=== PATIENT | male | born 1995 | race Caucasian/White ===

== ENCOUNTER 2023-10-16 19:18 | Emergency (ER) | payer OTHER, SELFPAY ==
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
[2023-10-16 19:23] VITALS: BP 131/96; PULSE 103; RESP 18; TEMP 36.2; O2SAT 97; BMI 27.4
[2023-10-16 19:31] VITALS: BP 131/96; PULSE 103; RESP 18; TEMP 36.2; O2SAT 97
[2023-10-16] MEDS: Diphth,Pertus(ACell),Tet Adult 0.5 ML SYRINGE IM (19:32)
--- OUTSIDE RECORDS SUMMARY | 2023-10-16 19:32 | XMS_ITS | Continuity of Care Document ---
Author Organization [facility] ter Address [address] [place] [address]- Care Team Providers Care Live Study Manager Name Role Phone Temitope Raymundo MD Primary Care Physician Encounter [facility] Date(s): 01/31/23 - 01/31/[address] [address]- Discharge Disposition: A-D/C Home Attending Physician: Sonja Mahoney MD Admitting Physician: Sonja Mahoney MD Referring Physician: Not on Staff, Referring MD Allergies, Adverse Reactions, Alerts No Known Allergies Medications No Known Medications Results Radiology Reports * Exam Date Time Procedure Performing Provider Status 01/31/23 9:[address] Cervical Spine W/O Contrast Joan Vasquez; Hermelinda (Verified) Notes: (CT Cervical Spine W/O Contrast) Reason For Exam: Neck trauma, dangerous injury mechanism;Other: RESULT: CT Cervical Spine W/O Contrast CT Head/Brain W/O Contrast, CT Cervical Spine W/O Contrast INDICATION: Reason: Trauma; Clinical Question(s): Hematoma TECHNIQUE: Noncontrast head CT using axial technique was reconstructed in axial and coronal planes.Noncontrast spiral CT through the cervical spine was formatted in 3 planes. Automatic tube modulation was used for the cervical spine and iterative dose reconstruction was used for both the head and cervical spine to optimize scan parameters and image quality. CTDIvol Body: 18.54 mGy, DLP Body: 411 mGy*cm. CTDIvol Head: 46.46 mGy, DLP Head: 836 mGy*cm. COMPARISON: None. FINDINGS: Resident Care Provider View Findings, Lines and Tubes: None. BRAIN AND EXTRA-AXIAL SPACES: No parenchymal hemorrhage, midline shift, or mass effect. Sharma-white matter differentiation is wellpreserved. No acute infarct. Ventricles, sulci, and basilar cisterns are normal. No white matter lesions. No subarachnoid hemorrhage. No subdural or epidural collection. CALVARIUM, SKULL BASE, AND SOFT TISSUES: No fractures or suspicious bony lesions. The paranasal sinuses and mastoid air cells are clear. Visualized orbits and globes are intact. The extracranial soft tissues are unremarkable. CERVICAL SPINE: No fracture. No acute osseous abnormalities. 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 Normal alignment. No locked or perched facet. Intervertebral disc spaces and vertebral body heightsare preserved. OTHER BONES: No acute abnormality. CERVICAL SOFT TISSUES AND LUNG APICES: Normal soft tissues. Visualized lung apices are clear. IMPRESSION: No acute abnormality of the head or cervical spine. WSN: [id number] Ordering Physician: Sonja Mahoney MD Dictated By: All Bey MD Dictated Date/Time: 01/31/23 10:05 a Reviewed By: All Bey MD Signed By: All Bey MD Signed Date/Time: 01/31/23 10:05 am Transcribed By: LILLIE Transcribed Date/Time: 01/31/23 9:54 am * Exam Date Time Procedure Performing Provider Status 01/31/23 9:[address] Head/Brain W/O Contrast Joan Lin; Hermelinda (Verified) Notes: (CT Head/Brain W/O Contrast) Reason For Exam: Trauma RESULT: CT Head/Brain W/O Contrast CT Head/Brain W/O Contrast, CT Cervical Spine W/O Contrast INDICATION: Reason: Trauma; Clinical Question(s): Hematoma TECHNIQUE: Noncontrast head CT using axial technique was reconstructed in axial and coronal planes.Noncontrast spiral CT through the cervical spine was formatted in 3 planes. Automatic tube modulation was used for the cervical spine and iterative dose reconstruction was used for both the head and cervical spine to optimize scan parameters and image quality. CTDIvol Body: 18.54 mGy, DLP Body: 411 mGy*cm. CTDIvol Head: 46.46 mGy, DLP Head: 836 mGy*cm. COMPARISON: None. FINDINGS: Resident Care Provider View Findings, Lines and Tubes: None. BRAIN AND EXTRA-AXIAL SPACES: No parenchymal hemorrhage, midline shift, or mass effect. Sharma-white matter differentiation is wellpreserved. No acute infarct. Ventricles, sulci, and basilar cisterns are normal. No white matter lesions. No subarachnoid hemorrhage. No subdural or epidural collection. CALVARIUM, SKULL BASE, AND SOFT TISSUES: No fractures or suspicious bony lesions. The paranasal sinuses and mastoid air cells are clear. Visualized orbits and globes are intact. The extracranial soft tissues are unremarkable. CERVICAL SPINE: No fracture. No acute osseous abnormalities. 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 Normal alignment. No locked or perched facet. Intervertebral disc spaces and vertebral body heightsare preserved. OTHER BONES: No acute abnormality. CERVICAL SOFT TISSUES AND LUNG APICES: Normal soft tissues. Visualized lung apices are clear. IMPRESSION: No acute abnormality of the head or cervical spine. WSN: [id number] Ordering Physician: Sonja Mahoney MD Dictated By: All Bey MD Dictated Date/Time: 01/31/23 10:05 a Reviewed By: All Bey MD Signed By: All Bey MD Signed Date/Time: 01/31/23 10:05 am Transcribed By: LILLIE Transcribed Date/Time: 01/31/23 9:54 am Vital Signs Most recent to oldest [Reference Range]: 1 2 Height 173 cm (01/31/23 9:15 AM) Weight 84.5 kg (01/31/23 9:15 AM) Oxygen Saturation [94-100 %] 97 % (01/31/23 10:42 AM) 100 % (01/31/23 9:35 AM) Pulse Rate [55-90 bpm] 74 bpm (01/31/23 10:42 AM) 79 bpm (01/31/23 9:35 AM) Blood Pressure [90-138/55-84 mm Hg] 144/ 78mm Hg *H* (01/31/23 10:42 AM) 159/106mm Hg *H* (01/31/23 9:35 AM) Respiratory Rate [16-30 br/min] 20 br/mi n (01/31/23 10:42 AM) 20 br/min (01/31/23 9:35 AM) Temperature [96.8-100.4 DegF] 98.2 DegF (01/31/23 9:35 AM) Liters per Minute 0 L/min (01/31/23 9:35 AM) Mode of Delivery (Oxygen) Room air (01/31/23 10:42 AM) Room air (01/31/23 9:35 AM) Blood pressure sites Arm, right (01/31/23 10:42 AM) Arm, right (01/31/23 9:35 AM) Temperature Route Oral (01/31/23 9:35 AM) Dry Weight 84.5 kg (01/31/23 9:15 AM) Social History Social History Type Response Sex Male Note * Maru BUCHANAN, Sonja Rocha: PERFORM Event Display: Patient Education Leaflets Authored Date: [id number] Head Injury: Adult ?? 697 Head Injury (Adult) You have a head injury. It doesn't appear serious at this time. But symptoms of a more serious problem, such as a mild brain injury (concussion) or bruising or bleeding in the brain, may appear later. For this reason, you or someone caring for you will need to watch for the symptoms listed below. Once you are home, also be sure to follow any care additional instructions you were given. ?? Home care Watch for the following symptoms Seek emergency medical care if you have any of these symptoms over the next hours to days: ??? Headache that gets worse or doesn't go away ??? Nausea or vomiting ??? Dizziness ??? Sensitivity to light or noise ??? Unusual sleepiness or grogginess ??? Trouble falling asleep ??? Personality changes ??? Vision changes ??? Memory loss ??? Confusion ??? Trouble walking or clumsiness ??? Loss of consciousness (even for a short time) ??? Inability to be awakened ??? Stiff neck ??? Weakness ornumbness in any part of the body ??? Seizures ?? General care ??? If you were prescribed medicines for pain, use them as directed. Note: Don???t take other medicines for pain without talking to your provider first. ??? To help reduce swelling and pain, apply a cold source to the injured area for up to 20 minutes at a time. Do this as often as directed. Use a cold pack or bag of ice wrapped in a thin towel. Never apply a cold source directly to the skin. ???If you have cuts or scrapes as a result of your head injury, care for them as directed. For the next 24 hours (or longer, if instructed): ??? Don???t drink alcohol or use sedatives or other medicines that make you sleepy. ??? Don???t drive or operate machinery. ??? Don???t do anything strenuous, such as heavy lifting or straining. ??? Limit tasks that require concentration. This includes reading, using a smartphone or computer, watching TV, and playing video games. ??? Don???t return to sports or other activities that could result in another head injury until approved by your healthcare provider. ?? Follow-up care Follow up with your healthcare provider, or as directed. If imaging tests were done, they will be reviewed by a doctor. You will be told the results and any new findings that may affect your care. ?? When to seek medical advice Call your healthcare provider right away if any of these occur: ??? Pain doesn???t get better or worsens ??? New or increased swelling or bruising ??? Increased redness, warmth, drainage, or bleeding from the injured area ??? Fluid drainage or bleeding from the nose or ears ??? Any depression or bony abnormality in the injured area ??? Persistent confusion or lethargy ??? Personality changes ??? Bruising behind the ears or bruising around the eyes ? * Maru BUCHANAN, Sonja Rocha: PERFORM Event Display: Patient Education Leaflets Authored Date: Physical Therapy Referral ?? 250 ?? This page is FOR PRESCRIBERS Only, ? DO NOT GIVE TO THE PATIENT? Physical Therapy Referral Program for Management of Pain In an effort to reduce narcotic use, some of our ED patients will benefit from a direct referral torehab care.?? [facility] will see INSURED patients and has a system in place to avoid sending follow up paperwork to the ED prescribers.? Note: Non-[facility] physical therapy services will probably NOT be able to handle ED generated PT referrals. ?? Patients should still follow up with their PCP as soon as possible regarding their ongoing care. Inform patients that [facility] will discuss insurance when they call.?? Some insurance plans limit the amount of PT a patient can receive each year. ?? Complete the FIRST PAGE of the patient???s referral sheet. [place] or write in diagnosis Modify the timing for treatment, if needed List any major precautions (i.e.?? Non-weight bearing limb), if needed Sign, date and print your name at the bottom ? Physical Therapy Referral Form Patient Instructions: You are being referred to physical therapy.?? This form is your referral and MUST be brought to your appointment. You need to call to set up your appointment. ?? This form can be used at any [facility] location.?? A list of locations is attached.?? 1)?? DIAGNOSIS/ICD-10 ([place] one) Cervicalgia: M54.2 ? Strain of muscle, fascia and tendon at neck level: S16.1XXD? Radiculopathy, cervical region: M54.12? Mid back pain: M54.9 ? Low back pain:?? M54.5 Strain of muscle, fascia and tendon of lower back: S39.012D Radiculopathy, lumbosacral region: M54.17 Other:? 2)? [? ]? Evaluate and Treat 2 Times/Week for 4 weeks as needed [? ]?Other: 3)? [? ]? No Precautions [? ]?Precautions: ?? I hereby certify these services as medically necessary for the patient???s plan of care. Physician???s Signature Date Physician Name (printed)? Locations You can call any location below.?? Tell them you were seen in a [facility] Emergency Department and have a referral form.?? Remember to bring your referral form with you to the appointment. KEYA Giles [id number]? KEYA Helms [address] [place] [address], [address]? [address] [place] [address] ? KEYA Swanson [id number]? KEYA Ayala [address] [place] [address]? [address] ? [place] [address]? [place] [address] [place] [address] Road?[address] ? [place] [address]? [facility] [address] ? Patient Care team information Care Team Personnel Name: Temitope Raymundo MD Position: [facility] Physician - Primary Care Member Role: PCP Address: Address: [address] [place] [address]- Name: Jesika Riggs RN Position: [facility] ED RN W/OE and Tasks Member Role: Patient Care Provider Name: Temitope [place] Position: [facility] ED TA [facility] Member Role: Student Name: Sonja Mahoney MD Position: [facility] ED Medicine MD Member Role: Admitting Physician Address: Address: [address] [place] [address] [place] [address]- Care Team Related Persons Name: STEPHANIE AYALA Address: home [address] [address]
--- OUTSIDE RECORDS SUMMARY | 2023-10-16 19:32 | XMS_ITS | Patient Health Record ---
Author Organization [facility] Address [address] [place] [address] Care Team Providers Care Automatic Trimming Sewer Name Role Phone ANABELLE SOTELO Primary Care Provider [phone] ALLERGIES No Known Allergies RESULTS Component Value Reference Range Notes CHLAMYDIA GC AMP PROBE, ITA Horne Reviewed date:01/22/2023 05:08:47 PM Interpretation: Performing Lab:Testing performed or reported by [facility], a Service of [facility], [address] [place] [address] Khris Thompson MD, Kst Operator [facility]# [id number] Notes/Report: URINE CHLAMYDIA AMP PROBE NEGATIVE (NEG) No Chlamydia Trachomatis RNA detected in this patient's sample (REFERENCE RANGE/NORMAL VALUE: NOT DETECTED) Note: This test uses civil engineering director- mediated amplification method to detect rRNA from C. Trachomatis URINE GC AMP PROBE NEGATIVE (NEG) No Neisseria Gonorrhoeae RNA detected in this patient's sample (REFERENCE RANGE/NORMAL VALUE: NOT DETECTED) NOTE: This test uses civil engineering director-mediated amplification method to detect rRNA from N.Gonorrhoeae. A negative result does not preclude infection. In the case of a negative urine result, testing of an endocervical(female) or urethral (male) specimen is recommended if there is high clinical suspicion of infection. Due to very high sensitivity of Nucleic Acid Amplification Test, false positive results may occur. Therefore, specimen handling is extremely important. In patients in whom the disease is unlikely, additional sample for testing should be considered after an initial positive result. The performance characteristics of this test have not been evaluated in children. The Aptima Combo2 assay is not intended for the evaluation of suspected sexual abuse or for other medico-legal indications. The ordering provider should assess if the patient had consensual sex without risk of sexual abuse. Consult the [facility] if needed. Contact phone number . Therapeutic failure or success cannot be determined with the Aptima Combo2 assay since nucleic acid may persist following appropriate antimicrobial therapy. The Centers for Disease Control and Prevention (CDC) recommends confirmatory retesting using culture or a different nucleic acid amplification test when positive results occur, if indicated. SYPHILIS TESTING Reviewed date:01/21/2023 08:15:20 AM Interpretation: Performing Lab:Testing performed or reported by [facility], a Service of [facility], [facility] [place] [address] Khris Thompson MD, Kst Operator [facility]# [id number] Notes/Report: SYPHILIS SCREEN BY CJ NEGATIVE (NEG) Reference range: Negative This test was performed on the [employer] Pick Pack Worker immunoassay system. RPR TITER RESULT NOT INDICATED TPPA RESULT NOT INDICATED SYPHILIS INTERPRETATION Indicative of th e absence of infection with Treponemal pallidum. Test may be negative in cases of incubating or early primary syphilis. Consider repeat testing in several weeks if clinical suspicion is high. REASON FOR REFERRAL No Information IMMUNIZATIONS Vaccine Route Administration Date Status Comme nts COVID Moderna Unknown 03/28/2021 Administered COVID Moderna Unknown 04/25/2021 Administered Fluzone QD Unknown 03/05/2019 Administered Tdap Unknown 03/05/2019 Administered SOCIAL HISTORY Tobacco Use: Social History Observation Description Date Details (start date - stop date) Never Smoker NA - NA Sex Assigned At : Social History Observation Description Sex Assigned At Unknown Tobacco Use/Smoking Question Answer Notes Are you a nonsmoker Alcohol Screen (Audit-C) Question Answer Notes Did you have a drink containing alcohol in the p ast year? No Points 0 Interpretation Negative VITAL SIGNS Heart Rate 74 /min 02/02/2023 Temperature 98.4 degrees Fahrenheit 02/02/2023 Blood pressure diastolic 90 mm Hg 02/02/2023 Oximetry 98 % 02/02/2023 Height 66 in 02/02/2023 Blood pressure systolic 142 mm Hg 02/02/2023 Weight 204.4 lbs 02/02/2023 BMI 32.99 kg/m2 02/02/2023 Encounters Encounter Location Date Provider Diagnosis [facility] [address] [place] [address] 11/14/2022 ANABELLE [facility] [address] [place] [address] 03/22/2023 [facility] [address] [place] [address] 11/27/2022 [facility] [address] [place] [address] 02/02/2023 [facility] GUL Concussion without l oss of consciousness, initial encounter S06.0X0A [facility] [address] [place] [address] 12/01/2022 [facility] [address] [place] [address] 01/19/2023 AHN GU Encounter for screen ing for infections with a predominantly sexual mode of transmission Z11.3 [facility] [address] [place] [address] 01/24/2023 [facility] [address] [place] [address] 02/01/2023 ANABELLE SOTELO ASSESSMENTS Encounter Date Diagnosis Assessment Notes Treatment Notes Treatment Clinical Notes 01/19/2023 Encounter for screening for infections with a predominantly sexual mode of transmission (ICD-10 - Z11.3) 02/02/2023 Concussion without loss of consciousness, initial encounter (ICD-10 - S06.0X0A) PLAN OF TREATMENT No Information Insurance Providers Payer Name Payer Address Payer Phone Subscriber Number Group Number Insured Name Patient Relationship to Insured Coverage Start Date Coverage End Date [facility] [address] [place] [phone] [id number] Addy Mackay Self - patient is the insured 2
== END 2023-10-16 19:32 | disposition home or self-care (01) ==
LOC: HO.ED 19:31
PROVIDERS: Emergency Provider Emergency Medicine Emergency Medical Services; PCP Hospitalist
DX: S50.812A Abrasion of left forearm, initial encounter (principal); M79.602 Pain in left arm; Y04.8XXA Assault by other bodily force, initial encounter; Y93.89 Activity, other specified; Y92.89 Other specified places as the place of occurrence of the external cause; Y99.0 Civilian activity done for income or pay; Z23 Encounter for immunization
CPT/HCPCS: 90471; 90715; 99282; 99284

== ENCOUNTER → 2024-05-07 15:02 | Outpatient (BNVA) | payer OTHER, SELFPAY | PROVIDERS: PCP Hospitalist; Visit Provider Physician Assistant | DX: S83.92XA Sprain of unspecified site of left knee, initial encounter (principal); S80.212A Abrasion, left knee, initial encounter; W01.0XXA Fall on same level from slipping, tripping and stumbling without subsequent striking against object, initial encounter; Z91.81 History of falling | CPT/HCPCS: 73564; 99204 ==

== ENCOUNTER → 2024-05-12 15:06 | Outpatient (BNVA) | payer OTHER, SELFPAY | PROVIDERS: PCP Hospitalist; Visit Provider Physician Assistant Medical | DX: S83.92XA Sprain of unspecified site of left knee, initial encounter (principal); S80.212A Abrasion, left knee, initial encounter; W01.0XXA Fall on same level from slipping, tripping and stumbling without subsequent striking against object, initial encounter | CPT/HCPCS: 99213 ==

== ENCOUNTER 2024-05-19 16:22 | Outpatient (REF) | payer OTHER, SELFPAY ==
--- NOTE | ~2024-05-19 | MR_ITS ---
CLINICAL HISTORY: Derangement MR left knee without contrast Comparison: None Findings: The medial and lateral menisci are intact. There is thickening and increased signal in the anterior cruciate ligament without definitive discontinuity (series 9 in 10 image 16). There is also thickening and increased signal in the posterior cruciate ligament near its insertion upon the femur without discontinuity (series 9 and series 10, image 14). The medial and lateral collateral ligaments are intact without periligamentous edema. No edema in the posterior lateral corner. The extensor mechanism is intact. No joint effusion. No Read's cyst. No fracture, stress reaction or osseous lesion. No hyaline cartilage disease in the patellofemoral, medial and lateral compartments. Impression: Normal menisci. Thickening and increased signal in the anterior cruciate ligament without definitive discontinuity may indicate mucoid degeneration or acute versus chronic interstitial partial tears. Question minimal anterior subluxation of the tibia which favors partial tear. There is also thickening and increased signal in the posterior cruciate ligament without discontinuity which may indicate partial tear or mucoid degeneration. No osseous or cartilaginous abnormality. This document has been electronically signed by: Megha Kent MD on 05/21/2024 14:02:31
--- OUTSIDE RECORDS SUMMARY | 2024-05-19 16:27 | XMS_ITS | Patient Health Record ---
Author Organization [facility] Address [address] [facility] [address] [place] [address] Care Team Providers Care Blurb Writer Name Role Phone ANABELLE SOTELO Primary Care Provider Kaveh Armenta Unavailable [phone] Allergies No Known Allergies Reason For Referral No Information Immunizations Vaccine Route Administration Date Status Comme nts COVID Moderna Unknown 03/28/2021 Administered COVID Moderna Unknown 04/25/2021 Administered Fluzone QD Unknown 03/05/2019 Administered Tdap Unknown 03/05/2019 Administered TDAP Unknown 10/16/2023 Administered Social History Tobacco Use: Social History Observation Description Date Details (start date - stop date) Never Smoker NA - NA Tobacco Use/Smoking Question Answer Notes Are you a nonsmoker Alcohol Screen (Audit-C) Question Answer Notes Did you have a drink containing alcohol in the p ast year? No Points 0 Interpretation Negative Vital Signs Heart Rate 93 /min 02/01/2024 Temperature 97.5 degrees Fahrenheit 02/01/2024 Blood pressure diastolic 82 mm Hg 02/01/2024 Oximetry 97 % 02/01/2024 Height 66 in 02/01/2024 Blood pressure systolic 130 mm Hg 02/01/2024 Weight 206.3 lbs 02/01/2024 BMI 33.29 kg/m2 02/01/2024 Encounters Encounter Location Date Provider Diagnosis [address] [place] [address] 02/01/2024 Kaveh Armenta Annual visit for general adult medical examination without abnormal findings Z00.00 ; Encounter for screening for cardiovascular disorders Z13.6 and Fatigue, unspecified type R53.83 [facility] [address] [facility] [address] [place] [address] 02/01/2024 ANABELLE SOTELO Assessments Encounter Date Diagnosis (ICD Code) Assessment Notes Treatment Notes Treatment Clinical Notes Section Notes 02/01/2024 Encounter for screening for cardiovascular disorders (ICD-10 - Z13.6) Mr. Mackay is a 28-year-old gentleman with no significant past medical history he is here today for his annual physical examination.Pl an as follows Fatigue/snorin g - We will rule out secondary causes of ANABEL, thyroid, anemia, vitamin D deficiency - Patient has been referred to a sleep study given his snoring, fatigue, Mallampati class III He is up-to-date on screenings and vaccinations. Blood work reviewed with patient and questions answered. Screening blood work before next appointment. General health concerns discussed with patient. I have rendered the services for this patient under direct supervision of Dr. Sotelo, who did not see the patient but was available upon request 02/01/2024 Annual visit for general adult medical examination without abnormal findings (ICD-10 - Z00.00) Mr. Mackay is a 28-year-old gentleman with no significant past medical history he is here today for his annual physical examination.Pl an as follows Fatigue/snorin g - We will rule out secondary causes of ANABEL, thyroid, anemia, vitamin D deficiency - Patient has been referred to a sleep study given his snoring, fatigue, Mallampati class III He is up-to-date on screenings and vaccinations. Blood work reviewed with patient and questions answered. Screening blood work before next appointment. General health concerns discussed with patient. I have rendered the services for this patient under direct supervision of Dr. Sotelo, who did not see the patient but was available upon request 02/01/2024 Fatigue, unspecified type (ICD-10 - R53.83) Mr. Mackay is a 28-year-old gentleman with no significant past medical history he is here today for his annual physical examination.Pl an as follows Fatigue/snorin g - We will rule out secondary causes of ANABEL, thyroid, anemia, vitamin D deficiency - Patient has been referred to a sleep study given his snoring, fatigue, Mallampati class III He is up-to-date on screenings and vaccinations. Blood work reviewed with patient and questions answered. Screening blood work before next appointment. General health concerns discussed with patient. I have rendered the services for this patient under direct supervision of Dr. Sotelo, who did not see the patient but was available upon request Plan Of Treatment Pending Test Test Name Order Date Vitamin B12 and Folate-139153 02/01/2024 Iron and TIBC-637593 02/01/2024 Ferritin-[id number] 02/01/2024 Vitamin D, 32-Vzgebar-167386 02/01/2024 CBC/Differential (No Platelet)-681549 Lipid Panel-[id number] 02/01/2024 Comp. Metabolic Panel (14)-[id number] 2023 Methylmalonic Acid, Serum-960519 024 Homocyst(e)ine-242196 02/01/2024 Next Appt Details Provider Name:AHN A GUL , 02/03/2025 10:00:00 AM, [address] [place] [address], [phone], Insurance Providers Payer Name Payer Address Payer Phone Subscriber Number Group Number Insured Name Patient Relationship to Insured Coverage Start Date Coverage End Date [facility] [address] [place] [address] [id number] Addy Mackay Self - patient is the insured 9
--- OUTSIDE RECORDS SUMMARY | 2024-05-19 16:27 | XMS_ITS ---
Author Organization [facility] Address [address] [place] [phone] Care Team Providers Care Psychotherapist Counselor Name Role Phone ANABELLE SOTELO Primary Care Provider REASON FOR VISIT BAD DEBT/INACTIVE INS Encounters Encounter Location Date Provider Diagnosis [address] [place] [address] 02/01/2024 ANABELLE SOTELO Plan Of Treatment Next Appt Details Provider Name:ANABELLE SOTELO , 02/03/2025 10:00:00 AM, [address] [place] [address] [address], [place], [phone], Progress Notes * Josue MACKAYwDOB:1995 (28 yo M)Acc No.[id number]:02/01/2024 Patient:?Adyd MACKAY :1995???Age:28 Y???Sex:Male Address:[address] [place] [phone] * true * Date:? Generated for Printi ng/Guerda/eTransmitting on:?05/19/2024 04:27 PM EST
--- OUTSIDE RECORDS SUMMARY | 2024-05-19 16:27 | XMS_ITS ---
Author Organization [facility] Address [address] [facility] [address] [place] [address] Care Team Providers Care Professor Of Music Name Role Phone SANTANAANABELLE Grant Primary Care Provider Kaveh Armenta Unavailable [phone] Allergies No Known Allergies REASON FOR VISIT SVETLANA Social History Tobacco Use: Social History Observation Description Date Details (start date - stop date) Never Smoker NA - NA Tobacco Use/Smoking Question Answer Notes Are you a nonsmoker Alcohol Screen (Audit-C) Question Answer Notes Did you have a drink containing alcohol in the p ast year? No Points 0 Interpretation Negative Vital Signs Temperature 97.5 degrees Fahrenheit 02/01/20 24 Oximetry 97 % 02/01/2024 Heart Rate 93 /min 02/01/2024 Blood pressure systolic 130 mm Hg 02/01/20 24 Blood pressure diastolic 82 mm Hg 024 Weight 206.3 lbs 02/01/2024 BMI 33.29 kg/m2 02/01/2024 Height 66 in 02/01/2024 Encounters Encounter Location Date Provider Diagnosis [facility] [address] [facility] [address] [place] [address] 02/01/2024 Kaveh Armenta Annual visit for general adult medical examination without abnormal findings Z00.00 ; Encounter for screening for cardiovascular disorders Z13.6 and Fatigue, unspecified type R53.83 Assessments Encounter Date Diagnosis (ICD Code) Assessment Notes Treatment Notes Treatment Clinical Notes Section Notes 02/01/2024 Annual visit for general adult medical [...] patient but was available upon request 02/01/2024 Encounter for screening for cardiovascular disorders [...] Test Name Order Date Vitamin B12 and Folate-[id number] 02/01/2024 Iron and TIBC-778054 02/01/2024 Ferritin-[id number] 02/01/2024 Vitamin D, 08-Apyetxc-613448 02/01/2024 CBC/Differential (No Platelet)-653532 Lipid Panel-[id number] 02/01/2024 Comp. Metabolic Panel (14)-[id number] 2023 Methylmalonic Acid, Serum-656242 024 Homocyst(e)ine-696585 02/01/2024 Next Appt Details Follow Up: 1 Year-Jessica bales n: Provider Name:ANABELLE SOTELO , 02/03/2025 10:00:00 AM, [address] [place] [address], [phone], Progress Notes * Josue MACKAYwDOB:1995 (28 yo M)Acc No.[id number]:02/01/2024 Progress Notes Patient:?Addy MACKAY Provider:?Kaveh Armenta :1995???Age:28 Y???Sex:Male Royce e:02/01/2024 Address:[address] [place], [place] [phone] Pcp:ANABELLE SOTELO Subjective: * Chief Complaints: * ???SVETLANA * HPI: ???Internal Medicine:?Mr. Mackay is a 28-year-old gentleman with no significant past medical history he is here today for his annual physical examination. He is in his usual state of health. Vision and hearing are stable. He sees a dentist twice a year. Memory is intact. He gained 2 pounds since last year. He is physically active he walks every day and tomorrow who will be starting a new job at the [employer]. No GI or symptoms. States that every once in a while he has trouble maintaining sleep, admits to snoring and fatigue in any daytime somnolence. He does not appear anxious or depressed. No other issues. ???Depression Screening:?PHQ-9?Little interest or pleasure in doing things?Not at all ?Feeling down, depressed, or hopeless?Not at all ?Trouble falling or staying asleep, or sleeping too much?Several days ?Feeling tired or having little energy?Several days ?Poor appetite or overeating?Not at all ?Feeling bad about yourself or that you are a failure, or have let yourself or your family down?Not at all ?Trouble concentrating on things, such as reading the newspaper or watching television?Not at all ?Moving or speaking so slowly that other people could have noticed; or the opposite, being so fidgety or restless that you have been moving around a lot more than usual?Not at all ?Thoughts that you would be better off or of hurting yourself in some way?Not at all ?Total Score?2 ?Interpretation?Minimal Depression * ROS:?General/Constitutional:?Overall health?Good.?Change in appetite?denies.?Chills?denies.?Admits?Fatigue.?Fever?denies.?Night sweats?denies.?Sleep disturbance?denies.?Weight gain?denies.?Weight loss?denies.?Neurologic:?Difficulty speaking?denies.?Dizziness?denies.?Gait abnormality?denies.?Headache?denies.?Loss of strength?denies.?Memory loss?denies.?Seizures?denies.?Tingling/Numbness?denies .?Ophthalmologic:?Blurred vision?denies.?Discharge?denies.?Dry eye?denies.?Red eye?denies.?ENT:?Change in Voice?Denies.?Cold Symptoms?Denies.?Cough?Denies.?Dizziness?Denies.?Nasal Congestion?Denies.?Otalgia?Denies.?postnasal drip?Denies.?Blocked ear?denies.?Nosebleed?denies.?Snoring?denies.?Cardiovascular:?Diaphoresis?Denies.?Pedal Edema?Denies.?PND (Paroxsymal nocturnal dyspnea)?Denies.?Chest pain?denies.?Difficulty laying flat?denies.?Dyspnea on exertion?denies.?Heart murmur?denies.?Orthopnea?denies.?Respiratory:?Snoring?Admit.?Asthma?denies.?Cough?denies.?Shortness of breath with exertion?denies.?Sputum production?denies.?Wheezing?denies.?Gastrointestinal:?Change in bowel habits?denies.?Constipation?denies.?Decreased appetite?denies.?Diarrhea?denies.?Heartburn?denies.?Nausea?denies.?Vomiting?claude es.?Musculoskeletal:?tingling/numbness?Denies.?myalgias?Denies.?Joint Swelling?Denies.?extremeties?normal.?Arthritis?denies.?Back problems?admits.?Carpal tunnel?denies.?Joint stiffness?denies.?Muscle aches?denies.?Endocrine:?Bowel Changes?Denies.?Breast Discharge?Denies.?poor libido?Denies.?Cold intolerance?denies.?Excessive sweating?denies.?Excessive thirst?denies.?Frequent urination?denies.?Thyroid problems?denies.?Skin:?Bruising?Denies.?Eczema?denies.?Hair changes?denies.?Rash?denies.?Skin lesion(s)?denies.?Psychiatric:?Anxiety?denies.?Depressed mood?denies.?Difficulty sleeping?denies.?Nervous breakdown?denies.?Substance abuse?denies.?Urology:?abnormal menstrual bleeding?denies.?blood in urine?denies.?burning on urination?denies.?difficulty urinating?denies.?discharge?denies.?dysuria?denies.? * Medical History:? * Surgical History:? * Hospitalization/Major Diagno stic Procedure:? * Family History:?Paternal Gra nd Mother: breast cancer.?Maternal Grand Mother: breast cancer.?Paternal aunt: breast cancer.?Father: diagnosed with Hypertension.?Paternal Grand Father: diagnosed with Heart Disease.? * Social History:?Tobacco Use:?Tobacco Use/Smoking?Are you a?nonsmoker ???Drugs/Alcohol:?Alcohol Screen (Audit-C)?Did you have a drink containing alcohol in the past year??No ?Points?0 ?Interpretation?Negative ?Do you smoke marijuana?: no. * Medications:?None * Allergies:?N.K.D.A.no[Allerg ies Verified] Objective: * Vitals:?Temp:97.5F, Oxygen s at %:97%, HR:93/min, BP:130/82mm Hg, Wt:206.3lbs, BMI:33.29Index, Ht: 66 in. * Examination: ???General Examination: ?Psychiatry?Normal.?GENERAL APPEARANCE:?Well developed, well nourished, in no acute distress.?MUSCULOSKELETAL:?Normal.?HEAD:?Normocephalic, atraumatic.?EYES:?Pupils equal, round, reactive to light and accommodation, sclera non-icteric.?EARS:?Normal.?ORAL CAVITY:?Normal.?THROAT:?Clear.?OROPHARYNX?Mallampati class III.?SINUSES?Normal.?NECK/THYROID:?Neck supple, full range of motion, no cervical lymphadenopathy.?SKIN:?Warm and dry, no suspicious lesions.?HEART:?Normal.?LUNGS:?Normal.?BREASTS:?__.?ABDOMEN:?Soft, nontender, nondistended, bowel sounds present, normal.?EXTREMITIES:?Normal.?PERIPHERAL PULSES:?1+ dorsalis pedis, , 2+ posterior tibial.?NEUROLOGIC:?Nonfocal,? 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 .? Assessment: * Assessment: 1.?Annual visit for general adult medical examination without abnormal findings - Z00.00 (Primary)???2.?Encounter for screening for cardiovascular disorders - Z13.6???3.?Fatigue, unspecified type - R53.83??? Mr. Mackay is a 28-year-old gentleman with no significant past medical history he is here today for his annual physical examination.Plan as follows Fatigue/snoring - We will rule out secondary causes [...] the patient but was available upon request Plan: * Treatment: 2.?Fatigue, unspecified type ?LAB: Vitamin B12 and Folate-522901 ?LAB: Iron and TIBC-488308 ?LAB: Ferritin-426484 ?LAB: Vitamin D, 14-Tsodouf-873761 ?LAB: CBC/Differential (No Platelet)-137271 ?LAB: Methylmalonic Acid, Serum-227549 ?LAB: Homocyst(e)ine-656726 * Procedure Codes:?3079F DIAST BP 80-89 MM TP5820V SYST BP GE 130 - 139MM HG * Preventive Medicine:?Flu- 2023 TDAP- 2023. * Follow Up:?1 Year-svetlana * * Sign off status: Completed true * Provider:?Kaveh Armenta Date:?02/01/20 24 Generated for Wilder graham/Guerda/Janet on:?05/19/2024 04:26 PM EST History and Physical Notes * HPI (History of Present Illness) Category Sub-Category Detail Notes Category Not es Depression Screening PHQ-9 Little inte rest or pleasure in doing things: Not at all Feeling down, depressed, or hopeless: No t at all Trouble falling or staying asleep, or sl eeping too much: Several days Feeling tired or having little energy: S everal days Poor appetite or overeating: Not at all Feeling bad about yourself o r that you are a failure, or have let yourself or your family down: Not at all Trouble concentrating on thi ngs, such as reading the newspaper or watching television: Not at all Moving or speaking so slowly that other people could have noticed; or the opposite, being so fidgety or restless that you have been moving around a lot more than usual: Not at all Thoughts that you would be b chary off or of hurting yourself in some way: Not at all Total Score: 2 Interpretation: Minimal Depression Internal Medicine Mr. Mackay is a 28-year-old gentleman with no significant past medical history he is here today for his annual physical examination. He is in his usual state of health. Vision and hearing are stable. He sees a dentist twice a year. Memory is intact. He gained 2 pounds since last year. He is physically active he walks every day and tomorrow who will be starting a new job at the [employer] station. No GI or symptoms. States that every once in a while he has trouble maintaining sleep, admits to snoring and fatigue in any daytime somnolence. He does not appear anxious or depressed. No other issues. Examination Category Sub-Category Detail Notes Category Not es General Examination GENERAL APPEARANCE: Well dev eloped, well nourished, in no acute distress HEAD: Normocephalic, atrau matic EYES: Pupils equal, round, reactive to light and accommodation, sclera non-icteric EARS: Normal THROAT: Clear NECK/THYROID: Neck supple, full ra nge of motion, no cervical lymphadenopathy HEART: Normal LUNGS: Normal ABDOMEN: Soft, nontender, non distended, bowel sounds present, normal NEUROLOGIC: Nonfocal, appropriat e motor strength normal upper and lower extremities, sensory exam intact. 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
== END 2024-05-19 16:23 | disposition home or self-care (01) ==
LOC: HO.MRI 16:22
PROVIDERS: PCP Hospitalist; Visit Provider Internal Medicine
DX: M23.92 Unspecified internal derangement of left knee (principal)
CPT/HCPCS: 73721

== ENCOUNTER → 2024-05-19 16:30 | Outpatient (BNV) | payer OTHER, SELFPAY | PROVIDERS: PCP Hospitalist; Visit Provider Radiology Diagnostic Radiology | DX: M23.92 Unspecified internal derangement of left knee (principal) | CPT/HCPCS: 73721 ==

== ENCOUNTER → 2024-05-22 15:30 | Outpatient (BNVA) | payer OTHER, SELFPAY | PROVIDERS: PCP Hospitalist; Visit Provider Physician Assistant Medical | DX: M23.92 Unspecified internal derangement of left knee (principal) | CPT/HCPCS: 99213 ==

== ENCOUNTER → 2024-08-20 11:18 | Outpatient (BNVA) | payer SELFPAY | PROVIDERS: PCP Hospitalist; Visit Provider Physician Assistant Medical | DX: Z02.79 Encounter for issue of other medical certificate (principal) ==